=== PATIENT | male | born 1985 | race Caucasian/White ===

== ENCOUNTER → 2017-10-14 | Outpatient (CLI) | payer OTHER | LOC: M.MRI 11:26 | DX: R51 Headache (principal) ==

== ENCOUNTER → 2017-12-16 | Outpatient (CLI) | payer OTHER | LOC: M.MRI 12-13 09:29 | DX: G43.909 Migraine, unspecified, not intractable, without status migrainosus (principal) ==

== ENCOUNTER → 2018-03-20 | Outpatient (CLI) | payer OTHER ==
--- NOTE | 2018-03-21 16:49 | 2DMMODE ---
[place] [address] 2 D/M-MODE ECHOCARDIOGRAM Name: GRECIA SEGAL Room: [facility]#: [id number] Admission: 03/20/18 Attend Phys: Lukas Huston MD Discharge: Date of : 81 Date of Service: 03/21/18 1649 Report #: [id number] THIS REPORT FOR: //name// APPROVED REPORT Study performed: 03/20/2018 14:04:26 EXAM: Comprehensive 2D, Doppler, and color-flow Echocardiogram Patient Location: Out-Patient Status: routine BSA: 1.92 HR: 80 bpm BP: 140/92 mmHg Other Information Study Quality: Good Indications Migraine Echo Enhancing Agent Indication: Rule out Shunt Agent(s) / Amount(s) Used: Agitated Saline cc 2D Dimensions LVEF(%): 72.17 (>50%) IVSd: 11.49 (7-11mm) LVOT Diam: 20.93 (18-24mm) LVDd: 46.41 mm PWd: 10.55 (7-11mm) Ascending Ao: 26.49 (22-36mm) LVDs: 27.26 (25-40mm) Aortic Root: 28.33 mm Segundo's LVEF: 72.17 % Volumes Left Atrial Volume (Systole) LA ESV Index: 20.90 mL/m2 Aortic Valve AoV Peak Chinmay.: 1.39 m/s AO Peak Gr.: 7.77 mmHg LVOT Max P.83 mmHg AO Mean Gr.: 4.24 mmHg LVOT Mean P.60 mmHg LVOT Max V: 1.10 m/s AO V2 VTI: 24.22 cm LVOT Mean V: 0.76 m/s LUCHO (VTI): 2.95 cm2 LVOT V1 VTI: 20.78 [place] [address] 2 D/M-MODE ECHOCARDIOGRAM Name: GRECIA SEGAL Room: [facility]#: [id number] Admission: 03/20/18 Attend Phys: Lukas Huston MD Discharge: Date of : 81 Date of Service: 03/21/18 1649 Report #: [id number] Mitral Valve E/A Ratio: 1.09 MV Decel. Time: 211.34 ms MV E Max Chinmay.: 0.74 m/s MV PHT: 61.29 ms MVA (PHT): 3.59 cm2 TDI E/Lateral E': 5.69 E/Medial E': 5.69 Medial E' Chinmay.: 0.13 m/s Lateral E' Chinmay.: 0.13 m/s Pulmonary Valve PV Peak Chinmay.: 1.18 m/s PV Peak Gr.: 5.59 mmHg Tricuspid Valve RAP Estimate: 5.00 mmHg TR Peak Gr.: 19.15 mmHg RVSP: 24.15 mmHg PA Pressure: 24.15 mmHg Left Ventricle The left ventricle is normal size. There is normal LV segmental wall motion. Borderline concentric left ventricular hypertrophy. Left ventricular systolic function is normal. The left ventricular ejection fraction is within the normal range. LVEF is 55-60%. The left ventricular diastolic function is normal. Right Ventricle The right ventricle is normal size. The right ventricular systolic function is normal. Atria The left atrium size is normal. Injection of bubbles documented no interatrial shunt. The right atrium size is normal. Aortic Valve The aortic valve is normal in structure. No aortic regurgitation is present. There is no aortic valvular stenosis. Mitral Valve The mitral valve is normal in structure. Mild mitral regurgitation. No evidence of mitral valve stenosis. Tricuspid Valve The tricuspid valve is normal in structure[place] [address] 2 D/M-MODE ECHOCARDIOGRAM Name: GRECIA SEGAL Room: [facility]#: [id number] Admission: 03/20/18 Attend Phys: Lukas Huston MD Discharge: Date of : 81 Date of Service: 03/21/18 1649 Report #: [id number] regurgitation. Pulmonic Valve The pulmonary valve is normal in structure. There is no pulmonic valvular regurgitation. Great Vessels The aortic root is normal in size. IVC is normal in size and collapses with >50% inspiration Pericardium There is no pericardial effusion. <Conclusion> LVEF is 55-60%. There is normal LV segmental wall motion. Borderline concentric left ventricular hypertrophy. The left ventricular diastolic function is normal. There is no aortic valvular stenosis. No aortic regurgitation is present. Mild mitral regurgitation. Mild tricuspid regurgitation. Injection of bubbles documented no interatrial shunt. <ELECTRONICALLY SIGNED> By: Joel Mcpherson MD, FACC 03/21/18 1649 48 48 Joel Mcpherson MD, FACC /INF
== END ==
LOC: M.CRD 03-07 14:00
DX: I08.1 Rheumatic disorders of both mitral and tricuspid valves (principal)